=== PATIENT | male | born 1960 | race Caucasian/White ===

== ENCOUNTER 2017-05-02 12:49 | Inpatient (IN) | payer OTHER ==
[~2017-05-02] VITALS: Ht 180.3 cm; Wt 94.3 kg
[2017-05-02 12:59] VITALS: BP 141/69
--- NOTE | 2017-05-02 14:01 | NUR ---
Patient being evaluated by Dr. Guevara in triage.
[2017-05-02] MEDS ORDERED: ASPIRIN 325 MG TAB PO ONE (14:15)
--- NOTE | 2017-05-02 14:41 | NUR ---
56/M BIB SELF C/O COUGH AND CONGESTION X 4 DAYS, SINUS HEADACHE; DENIES MD HX; WENT TO [facility] 04/30 AND WAS GIVEN PENICILLIN INJECTION AND COUGH MEDICATION PER PATIENT. DENIES N/V/D; SKIN IS PINK/WARM/DRY; AAOX4 WITH EVEN AND STEADY GAIT; LUNGS CLEAR BL; HR EVEN AND REGULAR; PT DENIES ANY FEVER, CP, SOB AT THIS TIME; PATIENT STATES PAIN OF 7/10 AT THIS TIME; VSS; PATIENT POSITIONED FOR COMFORT; HOB ELEVATED; BEDRAILS UP X2; BED DOWN. ER MD MADE AWARE OF PT STATUS.
--- NOTE | 2017-05-02 14:41 | NUR ---
Patient ambulated to bed 6 for further care. RN evaluating patient at bedside.
[2017-05-02 14:56] LABS: HEMATOCRIT 46.7 % (36-52); HEMOGLOBIN 15.4 g/dL (12.0-18.0); MEAN CORPUSCULAR HEMOGLOBIN 29 pg (27-31); MEAN CORPUSCULAR HGB CONC 33 g/dL (33-37); MEAN CORPUSCULAR VOLUME 87 fL (80-94); PLATELET COUNT (AUTO) 208 K/uL (140-450); RED CELL DISTRIBUTION WIDTH 12.2 % (11.6-13.7); WHITE BLOOD COUNT (AUTO) 6.8 K/uL (4.8-10.8)
[2017-05-02 15:16] LABS: ANION GAP 13.4 (8-16); CARBON DIOXIDE 28.3 mmol/L (21-32); CREATININE 1.1 mg/dL (0.6-1.3); POTASSIUM 3.7 mmol/L (3.5-5.1)
[2017-05-02 15:22] LABS: INR 1.1 (0.8-1.2); PARTIAL THROMBOPLASTIN TIME 29.7 secs (22-35.6); PROTHROMBIN TIME 10.2 secs (10.8-13.4)
[2017-05-02 15:23] LABS: ALBUMIN 3.5 g/dL (3.4-5.0); TOTAL BILIRUBIN 0.4 mg/dL (0.0-1.0); TOTAL PROTEIN, SERUM 7.6 g/dL (6.4-8.2)
[2017-05-02 15:24] LABS: EOSINOPHILS % (MANUAL) 1 % (0-4); LYMPHOCYTES % (MANUAL) 17 % (20-46); MONOCYTES % (MANUAL) 7 % (5-12); NEUTROPHILS % (MANUAL) 75 (43-65); PLATELET ESTIMATE ADEQUATE
[2017-05-02] MEDS ORDERED: LEVOFLOXACIN 750 MG TAB PO ONE (15:30)
[2017-05-02] MEDS ORDERED: ONDANSETRON 4 MG/2 ML VIAL IM/IVP PRN (15:55)
[2017-05-02] MEDS ORDERED: MORPHINE SULFATE 2 MG/ML SYR IVP PRN (15:55)
[2017-05-02] MEDS ORDERED: HYDROcodone/APAP 7.5/325 MG 1 TAB PO PRN (15:55)
[2017-05-02] MEDS ORDERED: ACETAMINOPHEN 325 MG TAB PO PRN (15:55)
[2017-05-02] MEDS ORDERED: DOCUSATE SODIUM 100 MG GELCAP PO PRN (15:55)
[2017-05-02] MEDS ORDERED: guaiFENesin DM 200/20 MG-10 ML 10 ML UDC PO PRN (16:05)
--- NOTE | 2017-05-02 16:06 | NUR ---
CALL TO GIVE REPORT. NIDHI GARCIA STATED WILL CALL BACK IN 5 MINS
[2017-05-02] MEDS ORDERED: LISINOPRIL 10 MG TAB PO SCH (16:15)
--- NOTE | 2017-05-02 16:20 | NUR ---
Patient will be admitted to care of DR ELLISON. Admited to TELE. Will go to room 122B. Belongings list completed. Report to NIDHI ROSALES.
[2017-05-02 16:40] VITALS: BP 122/77
--- NOTE | 2017-05-02 16:40 | NUR ---
ADMITTED PT FROM ER, AWAKE ALERT AND ORIENTED X4. BREATHING EVENLY AND UNLABORED, NO SIGNS OF ACUTE DISTRESS. SKIN IS INTACT, WARM AND DRY. NO SIGNS OF ANY BOWEL/BLADDER DISCOMFORT. DENIES OF ANY PAIN OR DISCOMFORT. ALL NEEDS ATTENDED, SAFETY PRECAUTIONS MAINTAINED. CALL LIGHT WITHIN REACH.
[2017-05-02 16:42] LABS: CHOL/HDL RATIO 4.3 (1-4.5); FREE T4 (FREE THYROXINE) 1.2 ng/dL (0.76-1.46); PHOSPHORUS 4.1 mg/dL (2.5-4.9); THYROID STIMULATING HORMONE 1.84 uIU/mL (0.34-3.76)
[2017-05-02] MEDS: LISINOPRIL 10 MG TAB PO SCH (17:02)
[2017-05-02] MEDS: NACL 0.9% 1,000 ML IV SCH (17:03)
[2017-05-02] MEDS ORDERED: LACTULOSE 20 GM/30 ML UDC PO ONE (18:25)
[2017-05-02] MEDS ORDERED: AZITHROMYCIN 500 MG in DEXTROSE 5% 250 ML IV ONE (18:35)
--- NOTE | 2017-05-02 18:45 | NUR ---
OBTAINED ORDER FOR IV ABX ROCEPHIN IV AND AZITHROMYCIN, NOTIFIED PET FEEDER RYAN VITAL DRAW, VERBALIZED WILL ENDORSE TO GINGER FARMER PET FEEDER TO OBTAIN MEDS. WILL NOTIFY ONCOMING GINGER FARMER NURSE.
--- NOTE | 2017-05-02 19:04 | NUR ---
PT AWAKE AND RESPONSIVE, NO SIGNS OF ACUTE DISTRESS. ENDORSED TO ONCOMING VISCOSITY TESTER NURSE FOR CONTINUITY OF CARE.
--- NOTE | 2017-05-02 19:10 | NUR ---
RECEIVED FROM AM RN IN BED AWAKE AND SITTING UP WATCHING TV. DENIES ANY PAIN AT THIS TIME. CALL LIGHT WITH IN REACH AND CARE PLANS FOR THE NIGHT DISCUSSED WITH HIM. TELEMETRY MONITORING. NSR . NO SOB. IVF SITE TO LEFT AC#20 WITH NO INFILTRATION . AFEBRILE. SKIN INTACT. NO EDEMA.
[2017-05-02 20:41] VITALS: BP 123/69
[2017-05-02] MEDS: ATORVASTATIN 20 MG TAB PO SCH (20:47)
[2017-05-02] MEDS: METOPROLOL 25 MG TAB PO SCH (20:48)
[2017-05-02] MEDS ORDERED: AZITHROMYCIN 500 MG INJ VIAL IV ONE (21:04)
[2017-05-02] MEDS ORDERED: cefTRIAXone 1,000 MG VIAL ONE (21:04)
--- NOTE | 2017-05-02 22:00 | NUR ---
SEEN PT. WALK TO RESTROOM INSIDE ROOM FOR BRP. AMBULATING WELL. INDEPENDENT. VERBALIZING WELL. SEQUENTIALS NOT APPLIED RT PT. INDEPENDENT AND WALKS AROUND ROOM. GOES BRP MOST OF TIMES.
[2017-05-02] MEDS: PNEUMOCOCCAL VACCINE 23 MCG/0.5 ML VIAL IMVAC SCH (23:10)
[2017-05-03] VITALS: BP 96/62
--- NOTE | 2017-05-03 01:29 | NUR ---
PT. SLEEPING WELL AT THIS TIME. NO NOTED ADVERSE REACTIONS FROM IV ABT GIVEN.TELEMETRY MONITOROING.
[2017-05-03 03:07] LABS: BASOPHILS # (AUTO) 0.1 K/uL (0.00-0.22); EOSINOPHILS # (AUTO) 0.4 K/uL (0-0.4); EOSINOPHILS % (AUTO) 4.9 % (0.0-4.0); HEMATOCRIT 41.1 % (36-52); HEMOGLOBIN 13.9 g/dL (12.0-18.0); LYMPHOCYTES % (AUTO) 26.6 % (20.5-51.1); MEAN CORPUSCULAR HEMOGLOBIN 29 pg (27-31); MEAN CORPUSCULAR HGB CONC 34 g/dL (33-37); MEAN CORPUSCULAR VOLUME 87 fL (80-94); MONOCYTES # (AUTO) 0.9 K/uL (0.8-1.0); MONOCYTES % (AUTO) 11.4 % (1.7-9.3); NEUTROPHILS # (AUTO) 4.3 K/uL (1.8-7.7); NEUTROPHILS % (AUTO) 56.1 % (42.2-75.2); PLATELET COUNT (AUTO) 186 K/uL (140-450); RED BLOOD CELL COUNT(AUTO) 4.73 MIL/uL (4.20-6.10); RED CELL DISTRIBUTION WIDTH 12.3 % (11.6-13.7); WHITE BLOOD COUNT (AUTO) 7.7 K/uL (4.8-10.8)
[2017-05-03 03:18] LABS: ANION GAP 9.9 (8-16); CALCIUM 8.4 mg/dL (8.5-10.1); CARBON DIOXIDE 30.7 mmol/L (21-32); CREATININE 1.2 mg/dL (0.6-1.3); POTASSIUM 4.6 mmol/L (3.5-5.1)
[2017-05-03 03:23] LABS: PHOSPHORUS 5.1 mg/dL (2.5-4.9)
[2017-05-03] MEDS: NACL 0.9% 1,000 ML IV SCH ×3 (03:57→20:15)
--- NOTE | 2017-05-03 04:08 | NUR ---
AWAKE AND AMBULATED TO RESTROOM INSIDE ROOM. ABLE TO VERBALIZE NEEDS WELL. INDEPENDENT. NO SOB. DENIES PAIN AND ON TELEMETRY MONITORING.
[2017-05-03 04:09] VITALS: BP 109/60
--- NOTE | 2017-05-03 05:20 | NUR ---
AWAKE AND WATCHING TV. REQUESTED JUICE. PROVIDE WITH ORANGE JUICE. NO PAIN COMPLAINTS THIS SHIFT. NO SOB. CARDIAC TELEMETRY . IVF SITE TO LEFT AC INTACT AND NO INFILTRATION.
[2017-05-03] MEDS: ALBUTEROL SULFATE/IPRATROPIU 3 ML SOL IH PRN ×4 (07:33→19:24)
--- NOTE | 2017-05-03 07:43 | NUR ---
ENDORSED TO THE NEXT RN FOR CONTINUITY OF CARE. AWAKE AND ALERT. CAME OUT FROM RESTROOM. INDEPENDENT. NO PAIN COMPLAINT DONE THIS SHIFT.
--- NOTE | 2017-05-03 07:44 | NUR ---
ADMITTED PT AWAKE ALERT AND ORIENTED X4. BREATHING EVENLY AND UNLABORED, NO SIGNS OF ACUTE DISTRESS. SKIN IS INTACT, WARM AND DRY. NO SIGNS OF ANY BOWEL/BLADDER DISCOMFORT. DENIES OF ANY PAIN OR DISCOMFORT. ALL NEEDS ATTENDED, SAFETY PRECAUTIONS MAINTAINED. CALL LIGHT WITHIN REACH. Addendum: 05/03/17 at 0959 by Ranjeet Warren RN PT AWAKE ALERT AND ORIENTED X4. BREATHING EVENLY AND UNLABORED, NO SIGNS OF ACUTE DISTRESS. SKIN IS INTACT, WARM AND DRY. NO SIGNS OF ANY BOWEL/BLADDER DISCOMFORT. DENIES OF ANY PAIN OR DISCOMFORT. ALL NEEDS ATTENDED, SAFETY PRECAUTIONS MAINTAINED. CALL LIGHT WITHIN REACH.
[2017-05-03 07:52] VITALS: BP 109/68
[2017-05-03] MEDS: AZITHROMYCIN 250 MG TAB PO SCH (08:34)
[2017-05-03] MEDS: METOPROLOL 25 MG TAB PO SCH ×2 (08:34→20:13)
[2017-05-03] MEDS: LISINOPRIL 10 MG TAB PO SCH (08:34)
[2017-05-03] MEDS ORDERED: guaiFENesin DM SUGAR FREE 100 MG/5 ML UDBTL PO PRN (08:40)
--- NOTE | 2017-05-03 08:50 | NUR ---
PATIENT HAS BEEN SCREENED AND CATEGORIZED MODERATE NUTRITION RISK. PATIENT WILL BE SEEN WITHIN 3-5 DAYS OF ADMISSION. 05/05/17-05/07/[address]
[2017-05-03] MEDS ORDERED: ASPIRIN 325 MG TABEC PO SCH (09:00)
[2017-05-03 09:13] LABS: T4 (THYROXINE) 8.7 ug/dL (4.5-12.0)
--- NOTE | 2017-05-03 09:20 | NUR ---
POST INCENTIVE SPIROMETRY PROCEDURE ENCOURAGED PATIENT TO USE EVERY 2 HOURS WHILE AWAKE
--- NOTE | 2017-05-03 10:15 | NUR ---
RECEIVED ORDER FROM DR. AL. PLACE ON MED SURG MONITORING. NOTED AND CARRIED OUT.
--- NOTE | 2017-05-03 10:46 | NUR ---
FAXED INITIAL REVIEW TO [facility] [phone] PHONE [phone] ANDERS [phone]
[2017-05-03] MEDS ORDERED: ECOTRIN 81 MG TABEC PO SCH (11:09)
[2017-05-03] MEDS ORDERED: CALCIUM ACETATE 667 MG TAB PO SCH (13:57)
[2017-05-03 16:00] VITALS: BP 109/71
--- NOTE | 2017-05-03 16:08 | NUR ---
WAS SEEN BY DR. VEGAS, NEW ORDERS RECEIVED. NOTED AND CARRIED OUT.
[2017-05-03] MEDS ORDERED: methylPREDNISolone SS 40 MG/ML VIAL IVP SCH (16:11)
--- NOTE | 2017-05-03 16:19 | NUR ---
EDUCATION PROVIDED ON SPUTUM COLLECTION AND RN OR YARD WAREHOUSE WORKER SAMPLE PROCESSING SPECIMEN CUP PLACED AT BEDSIDE CONNIE/RN NOTIFIED
--- NOTE | 2017-05-03 18:28 | NUR ---
PT AWAKE ALERT AND RESPONSIVE, NO SIGNS OF ACUTE DISTRESS. NO C/O PAIN AT THIS TIME. WILL ENDORSE TO ONCOMING AUTO CLUTCH SPECIALIST NURSE FOR CONTINUITY OF CARE.
[2017-05-03 18:36] LABS: HEMOGLOBIN A1C 6.2 % (4.8-5.6)
[2017-05-03] MEDS: BUDESONIDE 0.5 MG/2 ML NEBU INH SCH (19:24)
--- NOTE | 2017-05-03 19:25 | NUR ---
RECD. RESTING IN BED, AWAKE, A/OX4. RESPIRATION EVEN AND UNLABORED. IV OF NS AT 90 ML/HR INFUSING, LEFT AC G 20. COMPLAINT OF CONGESTION AND SLIGHT PAIN IN THE CHEST WHEN COUGHING, 3/10. LUNGS CLEAR ON BILATERAL AUSCULTATION. STATED WITH YELLOWISH SPUTUM WHEN COUGHING. ON SCHEDULED BREATHING TREATMENT. DENIES PAIN 0/10 AT THIS TIME. PLAN OF CARE DISCUSSED. VERBALIZED UNDERSTANDING.
--- NOTE | 2017-05-03 19:45 | NUR ---
Patient's Plan of Care was discussed and reviewed with CHEMICALS FERMENTATION OPERATOR: SIRI Bowen
[2017-05-03 20:00] VITALS: BP 146/71
[2017-05-03] MEDS: ATORVASTATIN 20 MG TAB PO SCH (20:11)
[2017-05-03] MEDS: DOCUSATE SODIUM 100 MG GELCAP PO SCH (20:12)
--- NOTE | 2017-05-03 20:13 | NUR ---
DUE PO MEDICATIONS GIVEN.
--- NOTE | 2017-05-03 20:30 | NUR ---
IV INFILTRATED, WILL INSERT NEW IV LINE.
[2017-05-03] MEDS: methylPREDNISolone SS 40 MG/ML VIAL IVP SCH (20:33)
--- NOTE | 2017-05-03 22:00 | NUR ---
NEW IV LINE INSERTED AT THE LEFT HAND G22.
--- NOTE | 2017-05-03 22:30 | NUR ---
FEEL LIKE WANTS TO HAVE BM BUT UNABLE TO HAVE ONE, 2 WARM PRUNE JUICE GIVEN.
--- NOTE | 2017-05-03 23:30 | NUR ---
STILL NO BM, ENCOURAGE TO DRINK MORE FLUIDS AND EAT FOODS HIGH IN FIBER.
[2017-05-04] VITALS: BP 128/66
--- NOTE | 2017-05-04 01:00 | NUR ---
SLEEPING COMFORTABLY IN BED.
[2017-05-04] MEDS: NACL 0.9% 1,000 ML IV SCH (02:11)
[2017-05-04 06:25] LABS: BASOPHILS % (AUTO) 0.3 % (0.0-2.0); EOSINOPHILS # (AUTO) 0.1 K/uL (0-0.4); EOSINOPHILS % (AUTO) 1.1 % (0.0-4.0); HEMATOCRIT 40.5 % (36-52); HEMOGLOBIN 13.8 g/dL (12.0-18.0); LYMPHOCYTES # (AUTO) 0.6 K/uL (2.0-11.5); LYMPHOCYTES % (AUTO) 7.1 % (20.5-51.1); MEAN CORPUSCULAR HEMOGLOBIN 29 pg (27-31); MEAN CORPUSCULAR HGB CONC 34 g/dL (33-37); MEAN CORPUSCULAR VOLUME 86 fL (80-94); MONOCYTES # (AUTO) 0.1 K/uL (0.8-1.0); MONOCYTES % (AUTO) 0.7 % (1.7-9.3); NEUTROPHILS # (AUTO) 8.2 K/uL (1.8-7.7); NEUTROPHILS % (AUTO) 90.8 % (42.2-75.2); PLATELET COUNT (AUTO) 200 K/uL (140-450); RED BLOOD CELL COUNT(AUTO) 4.71 MIL/uL (4.20-6.10)
[2017-05-04 06:35] LABS: ANION GAP 12.3 (8-16); CALCIUM 8.5 mg/dL (8.5-10.1); CARBON DIOXIDE 26.2 mmol/L (21-32); CREATININE 0.9 mg/dL (0.6-1.3); POTASSIUM 4.5 mmol/L (3.5-5.1)
--- NOTE | 2017-05-04 06:50 | NUR ---
CONDITION REMAIN STABLE. WILL ENDORSE TO AM NURSE FOR CONTINUITY OF CARE.
[2017-05-04] MEDS: BUDESONIDE 0.5 MG/2 ML NEBU INH SCH (07:03)
--- NOTE | 2017-05-04 07:20 | NUR ---
ENDORSED TO NIDHI HERNANDEZ FOR CONTINUITY OF CARE.
--- NOTE | 2017-05-04 07:30 | NUR ---
REPORT RECEIVED FROM RESEARCH AND DEVELOPMENT SCIENTIST, CARE ASSUMED AT THIS TIME, PT RESTING QUIETLY, PT AOX4, + INTERMITTENT COUGHS, NON PRODUCTIVE, RESP EVEN UNLABORED ON ROOM AIR IN NAD, AROUSED EASILY BY VOICE, PLAN OF CARE REVIEWED, PT DENIES ANY IMMEDIATE NEEDS, CALL ENGLISH WITHIN REACH, SIDE RAILS UP, BED LOCKED IN LOW POSITION, WILL CONTINUE TO MONITOR.
[2017-05-04 08:00] VITALS: BP 150/60
[2017-05-04] MEDS: methylPREDNISolone SS 40 MG/ML VIAL IVP SCH (08:52)
[2017-05-04] MEDS: AZITHROMYCIN 250 MG TAB PO SCH (08:53)
[2017-05-04] MEDS: METOPROLOL 25 MG TAB PO SCH (08:53)
[2017-05-04] MEDS: DOCUSATE SODIUM 100 MG GELCAP PO SCH (08:54)
[2017-05-04] MEDS: LISINOPRIL 10 MG TAB PO SCH (08:54)
[2017-05-04] MEDS ORDERED: PANTOPRAZOLE 40 MG INJ VIAL IVP SCH (09:00)
[2017-05-04] MEDS ORDERED: LACTOBACILLUS RHAMNOSUS GG 1 EACH CAP PO SCH (09:00)
--- NOTE | 2017-05-04 09:20 | NUR ---
PT REPORTS IV ACCIDENTALLY CAME OUT, TIP INTACT, BLEEDING CONTROLLED, PENDING DC HOME. PT AWARE OF PLAN, DENIES ANY IMMEDIATE NEEDS, WILL CONTINUE TO MONITOR.
[2017-05-04] MEDS ORDERED: LACTULOSE 20 GM/30 ML UDC PO SCH (09:47)
--- NOTE | 2017-05-04 10:18 | NUR ---
FAXED CONCURRENT REVIEW TO [facility] [phone] PHONE [phone] ANDERS, [phone]
[2017-05-04] MEDS ORDERED: SODIUM PHOS / POTASSIUM PHOS 1 PKT PDR PO SCH (10:27)
[2017-05-04 10:33] VITALS: BP 150/60
[2017-05-04] MEDS: PNEUMOCOCCAL VACCINE 23 MCG/0.5 ML VIAL IMVAC SCH (10:56)
[2017-05-04] MEDS ORDERED: LEVO500T22 PO (11:12)
[2017-05-04] MEDS ORDERED: LACT1CAP92 PO (11:14)
[2017-05-04] MEDS ORDERED: MAGN400S60 BC (11:16)
[2017-05-04] MEDS ORDERED: DOCU-67 PO (11:16)
[2017-05-04] MEDS ORDERED: ATOR20TA40 PO (11:18)
[2017-05-04] MEDS ORDERED: LISI10TA11 PO (11:18)
[2017-05-04] MEDS ORDERED: METH4TAB1 PO (11:31)
[2017-05-04] MEDS ORDERED: MAGN100T16 PO (11:33)
--- NOTE | 2017-05-04 11:56 | NUR ---
NO S/S OF REACTION NOTED AFTER PNEUMOVAX.
--- NOTE | 2017-05-04 12:02 | NUR ---
CARDIAC ECHO BEING DONE AT BEDSIDE, WILL DC HOME WHEN COMPLETED
--- NOTE | 2017-05-04 13:38 | NUR ---
DISCHARGE INSTRUCTION GIVEN AND EXPLAINED TO PT, PT VERBALIZED FULL UNDERSTANDING, PT AWARE TO PIGMENT PRESSER RX AT [facility], AND F/U WITH [facility] ON MAY 16, ALL QUESTIONS ASKED AND ANSWERED, PT WAITING FOR FAMILY TO PICK HIM UP.
[2017-05-04 13:50] VITALS: BP 130/69
--- NOTE | 2017-05-04 14:00 | NUR ---
PT UP OUT OF BED AMBULATES WITH STEADY GAIT, DC HOME NOW WITH SISTER, ESCORTED OUT BY RN AT THIS TIME.
== END 2017-05-04 14:00 | disposition home or self-care (01) | DRG 279 ==
LOC: MED 12:49 → MTU 15:54
PROVIDERS: ADMIT Family Medicine; ATTEND Family Medicine
DX: K72.90 Hepatic failure, unspecified without coma (principal); N17.0 Acute kidney failure with tubular necrosis; J18.9 Pneumonia, unspecified organism; E72.20 Disorder of urea cycle metabolism, unspecified; E83.51 Hypocalcemia; E83.39 Other disorders of phosphorus metabolism; J45.901 Unspecified asthma with (acute) exacerbation; M94.0 Chondrocostal junction syndrome [Tietze]; E86.0 Dehydration; E78.5 Hyperlipidemia, unspecified; K21.9 Gastro-esophageal reflux disease without esophagitis; Z53.29 Procedure and treatment not carried out because of patient's decision for other reasons; J42 Unspecified chronic bronchitis; N18.9 Chronic kidney disease, unspecified
CPT/HCPCS: 36415; 71010; 71020; 80048; 80053; 82040; 82140; 82150; 83036; 83690; 83735; 83880; 84100; 84436; 84439; 84443; 84479; 84484; 85025; 85610; 85730; 87081; 87804; 90732; 93005; 94640; 99285; C9113; G0482; J0456; J0696; J2920; J7030; J7060; J7620; J7626; Q0092

== ENCOUNTER 2019-09-18 16:59 | Emergency (ER) | payer OTHER ==
[~2019-09-18] VITALS: Ht 180.3 cm; Wt 95.3 kg
[~2019-09-18 16:59] MED LIST: ATOR20TA40 PO; DOCU-299 PO; LACT1CAP92 PO; LEVO500T2 PO; LISI10TA11 PO; MAGN100T16 PO; METH4TAB1 PO
[2019-09-18 17:00] VITALS: BP 144/83
--- NOTE | 2019-09-18 17:06 | NUR ---
pt ambulated to lobby with stable vitals.
--- NOTE | 2019-09-18 18:20 | NUR ---
58 Y/O M PRESENTS TO THE ER C/O COUGH, SORE THROAT, LOSS OF VOICE, RUNNY NOSE X3 DAYS. COUGH IS PRODUCTIVE WITH THIN YELLOW PRODUCTION. PT DENIES FEVER OR CHILLS. DENIES N/V/D. OTC MUCINEX IS BEING TAKEN, WITHOUT ANY RELIEF. PAIN 8/10 HEADACHE AND SORE THROAT. NKA. MED HX: HTN AND HYPERLIPIDEMIA. WAITING FOR PA TO EVALUATE PT.
--- NOTE | 2019-09-18 18:27 | NUR ---
INFLUENZA SWAB COLLECTED
[2019-09-18 19:26] VITALS: BP 137/82
--- NOTE | 2019-09-18 19:26 | NUR ---
DISCHARGE PAPERS GIVEN TO PT. RX OF IBUPROFEN, TAMIFLU, AND PROMETHAZINE GIVEN. SIDE EFFECTS EXPLAINED. 01/08 TOLLERABLE PAIN. NO RESPIRATORY DISTRESS. VSS. INSTRUCTED TO F/U WITH PCP AND WHEN TO RETURN TO ER. PT VERBALLIZED UNDERSTANDING OF DC INSTRUCTIONS. ALL QUESTIONS ANSWERED.
== END 2019-09-18 19:26 | disposition home or self-care (01) ==
LOC: MED 16:59
DX: J10.1 Influenza due to other identified influenza virus with other respiratory manifestations (principal); I10 Essential (primary) hypertension; Z79.899 Other long term (current) drug therapy
CPT/HCPCS: 87804; 99283

== ENCOUNTER 2019-09-23 21:25 | Emergency (ER) | payer OTHER ==
[~2019-09-23] VITALS: Ht 180.3 cm; Wt 97.5 kg
[2019-09-23 21:25] VITALS: BP 162/86
--- NOTE | 2019-09-23 21:25 | NUR ---
to bed # 04 ambulatory
--- NOTE | 2019-09-23 21:35 | NUR ---
58 YO M BIB SELF PRESENTS TO ED C/O COUGH, RUNNY NOSE, SCOTT X 5 DAYS. SEEN IN ER WEDNESDAY WITH SAME S/SX, TX WITH RX FOR COUGH. CANNOT REMEMBER RX NAME. PT STATES MINIMAL RELIEF. DENIES PAIN AT THIS TIME. -- PT AWAKE, ALERT, CALM, COOPERATIVE. BEHAVIOR APPROPRIATE. -- SKIN PINK, WARM, DRY. BREATHING EVEN, UNLABORED. LUNGS CTA. SPO2 98% ON RA. NO COUGH HEARD AT THIS TIME. PMH-- DENIES
[2019-09-23 21:55] VITALS: BP 148/74
--- NOTE | 2019-09-23 21:58 | NUR ---
Patient discharged with v/s stable. Written and verbal after care instructions given and explained. Patient alert, oriented and verbalized understanding of instructions. Ambulatory with steady gait. All questions addressed prior to discharge. ID band removed. Patient advised to follow up with PMD. Rx of AZITHROMYCIN, PREDNISONE given. Patient educated on indication of medication including possible reaction and side effects. Opportunity to ask questions provided and answered.
== END 2019-09-23 21:55 | disposition home or self-care (01) ==
LOC: MED 21:25
DX: J10.1 Influenza due to other identified influenza virus with other respiratory manifestations (principal); I10 Essential (primary) hypertension; Z79.899 Other long term (current) drug therapy; Z79.2 Long term (current) use of antibiotics
CPT/HCPCS: 99283